=== PATIENT | female | born 1990 | race Caucasian/White ===

== ENCOUNTER 2025-04-27 11:13 | Emergency (ER) | payer OTHER, SELFPAY ==
--- OUTSIDE RECORDS SUMMARY | 2024-05-20 04:30 | XMS_ITS ---
Author Organization [facility] in [place] Address [address] [place] [address] Care Team Providers Care Mannequin Decorator Name Role Phone Dada Welch Primary Care Provider [phone] REASON FOR VISIT -1 Month Follow Up- Encounters Encounter Location Date Provider Diagnosis [facility] [address] [place] [address] 05/20/2024 Dada Welch Plan Of Treatment Next Appt Details Provider Name:Radiology Prov ider, 05/12/2025 02:30:00 PM, [address] [place] [address], [phone], Progress Notes * Anitha HOOD KDOB:[birth year] (35 yo F)Acc No.[id number]:05/20/2024 UNLOCKED PROGRESS NOTE Established Patient: Jennifer ROBLES Anitha Cinthya :?Dada Welch DODOB:1990???Age:34 Y ???Sex:FemaleDate:05/20/2024Phone:[phone]:2 [place], [place]-[address] Subjective: * Chief Complaints: * 1 . -1 Month Follow Up-. * Medical History: Objective: * Vitals: Assessment: Plan: * Treatment: * * Electronic signature of Dada Welch DO, [id number] on 04/27/2025 at 11:56 AM ESTSign off status: PendingVisit Status:?R/S (Rescheduled) * Provider: Samuel Welch DO Date: 0 05/20/2024 Generated for Printing/Faxing/eTransmitting on:?04/27/2025 11:56 AM EST
--- OUTSIDE RECORDS SUMMARY | 2024-06-03 04:30 | XMS_ITS ---
Author Organization [facility] in [place] Address [address] [place] [address] Care Team Providers Care Child And Youth Program Assistant Name Role Phone Dada Welch Primary Care Provider REASON FOR VISIT -1 Month Follow Up- Encounters Encounter Location Date Provider Diagnosis [facility] [address] [place] [address] 06/03/2024 Dada Welch Plan Of Treatment Next Appt Details Provider Name:Radiology Prov ider, 05/12/2025 02:30:00 PM, [address] [place] [address], [phone], Progress Notes * Anitha HOOD KDOB:[birth year] (35 yo F)Acc No.[id number]:06/03/2024 UNLOCKED PROGRESS NOTE Established Patient: Jennifer ROBLES Anitha Cinthya :?Dada Welch DODOB:1990???Age:34 Y ???Sex:FemaleDate:06/03/2024Phone:[phone]:2 [place], [place]-[address] Subjective: * Chief Complaints: * 1 . -1 Month Follow Up-. * Medical History: Objective: * Vitals: Assessment: Plan: * Treatment: * * Electronic signature of Dada Welch DO, [id number] on 04/27/2025 at 11:56 AM ESTSign off status: PendingVisit Status:?R/S (Rescheduled) * Provider: Samuel Welch DO Date: 0 06/03/2024 Generated for Printing/Faxing/eTransmitting on:?04/27/2025 11:56 AM EST
--- OUTSIDE RECORDS SUMMARY | 2024-09-23 04:30 | XMS_ITS ---
Author Organization [facility] in [place] Address [address] [place] [address] Care Team Providers Care Accounting System Expert Name Role Phone Dada Welch Primary Care Provider [phone] REASON FOR VISIT -6 Week Follow Up- Encounters Encounter Location Date Provider Diagnosis [facility] [address] [place] [address] 09/23/2024 Dada Welch Plan Of Treatment Next Appt Details Provider Name:Radiology Prov ider, 05/12/2025 02:30:00 PM, [address] [place] [address], [phone], Progress Notes * Anitha HOOD KDOB:[birth year] (35 yo F)Acc No.[id number]:09/23/2024 UNLOCKED PROGRESS NOTE Established Patient: Jennifer ROBLES Anitha Cinthya :?Dada Welch DODOB:1990???Age:34 Y ???Sex:FemaleDate:09/23/2024Phone:[phone]:[address] [place], [place]-[address] Subjective: * Chief Complaints: * 1 . -6 Week Follow Up-. * Medical History: Objective: * Vitals: Assessment: Plan: * Treatment: * * Electronic signature of Dada Welch DO, [id number] on 04/27/2025 at 11:56 AM ESTSign off status: PendingVisit Status:?R/S (Rescheduled) * Provider: Samuel Welch DO Date: 0 09/23/2024 Generated for Printing/Faxing/eTransmitting on:?04/27/2025 11:56 AM EST
--- OUTSIDE RECORDS SUMMARY | 2024-11-18 04:00 | XMS_ITS ---
Author Organization [facility] in [place] Address [address] [place] [address] Care Team Providers Care Records Tech Name Role Phone Dada Welch Primary Care Provider [phone] REASON FOR VISIT -1 Month Follow Up- Encounters Encounter Location Date Provider Diagnosis [facility] [address] [place] [address] 11/18/2024 Dada Welch Plan Of Treatment Next Appt Details Provider Name:Radiology Prov ider, 05/12/2025 02:30:00 PM, [address] [place] [address], [phone], Progress Notes * Anitha HOOD KDOB:[birth year] (35 yo F)Acc No.[id number]:11/18/2024 UNLOCKED PROGRESS NOTE Established Patient: Jennifer ROBLES Anitha Cinthya :?Dada Welch DODOB:1990???Age:34 Y ???Sex:FemaleDate:11/18/2024Phone:[phone]:[address] [place], [place]-[address] Subjective: * Chief Complaints: * 1 . -1 Month Follow Up-. * Medical History: Objective: * Vitals: Assessment: Plan: * Treatment: * * Electronic signature of Dada Welch DO, [id number] on 04/27/2025 at 11:56 AM ESTSign off status: PendingVisit Status:?CANC (Cancelled) * Provider: Samuel Welch DO Date: 0 11/18/2024 Generated for Printing/Faxing/eTransmitting on:?04/27/2025 11:56 AM EST
--- OUTSIDE RECORDS SUMMARY | 2025-04-26 05:30 | XMS_ITS ---
Author Organization [facility] in [place] Address [address] [place] [address] Care Team Providers Care Bowl Sander Name Role Phone Dada Welch Primary Care Provider Allergies No Known Allergies Reason For Referral Reason L LE EMG Diagnosis 1 Paresthesia of skin (R20.2) Referral Organization [facility] Referring Provider First Name Dada Referring Provider Last Name Yuri Referring Provider Speciality Family Med icine Referred Provider Janice Keane Referred Provider Specialty Neurology General Notes Dada Welch 11:07:02 AM >please call pt for appt - needs L LE EMG Referral Priority Routine REASON FOR VISIT leg pain, check up Medications Medication SIG (Take, Route, Frequency, Duration) Notes Start Date End Date Status Sertraline HCl 50 MG 1 tablet Orally Once a day; Duration: 30 days 04/26/2025tiveVilazodone HCl 20 MG1 tablet with food Orally Once a day; Duration: 30 days10/07/2024Not-TakingbusPIRone HCl 5 MG1 tablet Orally Twice a day08/12/2024Not-TakingGabapentin 100 MG1 capsule Orally bid; Duration: 30 days 5Active Social History Tobacco Use: Social History Observation Description Date Details (start date - stop date) Never Smoker NA - NA Tobacco Control (Standard) Question Answer Notes Tobacco use: Nonsmoker Problems Problem Type SNOMED Code ICD Code Onset Dates Problem Status W/U Status Risk Notes Problem Mild recurrent major depression (50179355) Major depressive disorder, recurrent, mild (F33.0) ActiveconfirmedProblemParesthesia (finding) (39758718)Paresthesia of skin (R20.2)Activeconfirmed Vital Signs Weight 174.2 lbs 04/26/2025 Height 67 in 04/26/2025 Blood pressure systolic 140 mm Hg 04/26/20 25 Blood pressure diastolic 90 mm Hg 025 Heart Rate 95 /min 04/26/2025 Respiratory Rate 16 /min 04/26/2025 BMI 27.28 kg/m2 04/26/2025 Oximetry 98 % 04/26/2025 Encounters Encounter Location Date Provider Diagnosis [facility] [address] [place] [address] 04/26/2025 Dada Welch Generalized anxiety disorder F41.1 ; Major depressive disorder, recurrent, mild F33.0 ; Pain in left hip M25.552 ; Paresthesia of skin R20.2 ; Overweight E66.3 ; Body mass index [BMI] 27.0-27.9, adult Z68.27 and Encounter for general adult medical examination with abnormal findings Z00.01 Assessments Encounter Date Diagnosis (ICD Code) Assessment Notes Treatment Notes Treatment Clinical Notes Section Notes 04/26/2025 Generalized anxiety disorder (IC D-10 - F41.1) rec counseling pt wants to restart the zoloft she was on in the past instead of the buspar/viibryd rtc 3 months 04/26/2025Major depressive disorder, recurrent, mild (ICD-10 - F33.0) rec counseling pt wants to restart the zoloft she was on in the past instead of the buspar/viibryd rtc 3 months 04/26/2025Pain in left hip (ICD-10 - M25.552) oarrs ok tx based on MRI results d/w pt that if MRI negative then I rec PT 04/26/2025Paresthesia of skin (ICD-10 - R20.2)EMG - tx based on results 04/26/2025Overweight (ICD-10 - E66.3)diet//17/2025ody mass index [BMI] 27.0-27.9, adult (ICD-10 - Z68.27)04/26/2025Encounter for general adult medical examination with abnormal findings (ICD-10 - Z00.01) rec eye and dental exams yearly diet/exercise rtc 1 year rec pap q5 years rec flu shot yearly rec dtap q10 years labs yearly Plan Of Treatment Medication Medication Name Sig Start Date Stop Date Notes Sertraline HCl 50 MG 1 tablet Orally Once a day; Durat ion: 30 days 04/26/2025 Gabapentin 100 MG1 capsule Orally bid; Duration: 30 days04/26/2025Treatment Notes Assessment Notes Generalized anxiety disorder rec counseling pt wants to restart the zoloft she was on in the past instead of the buspar/viibryd rtc 3 months Major depressive disorder, recurrent, mi ld rec counseling pt wants to restart the zoloft she was on in the past instead of the buspar/viibryd rtc 3 months Pain in left hip oarrs ok tx based on MRI results d/w pt that if MRI negative then I rec PT Paresthesia of skin EMG - tx based on re sults Overweight diet/exercise Encounter for general adult medical examination with abnormal findings rec eye and dental exams yearly diet/exercise rtc 1 year rec pap q5 years rec flu shot yearly rec dtap q10 years labs yearly Pending Test Test Name Order Date MRI Hip LT w/o contrast 04/26/2025 Referrals Referral Date Details 04/26/2025 04/26/2025, Janice TRIPLETT Next Appt Details Provider Name:Radiology Prov idetrue, 05/12/2025 02:30:00 PM, [address] [place] [address], [phone], Progress Notes * Anitha DANIELS KDOB:[birth year] (35 yo F)Acc No.[id number]:04/26/2025 Established Patient: Jennifer ROBLES Anitha Mendes :?Dada Welch, DODOB:1990???Age:35 Y ???Sex:FemaleDate:04/26/2025Phone:[phone]:[address] [place], [place]-[address]Check In:10:30 AM ESTCheck Out:11:14 AM EST Subjective: * Chief Complaints: * L eg painCheck up * HPI: ???General:?patient presents today for leg pain. she states she is hoping to get something prescribed.-mv pt off mood meds due to being off insurance was on buspar and viibryd but wants to go back to zoloft she was on in the past was helping SARTHAK and MDD s/s mostly anxiety with driving menses regular no geoscientist 04/2024 MRI L spine +small disc bulge at L5/S1 04/2024 MRI R femur - normal 04/2024 MRI L femur - normal 03/2024 MRI brain +neurofibromas, no major change no major LBP per pt L leg pain - from hip to foot? more numbness per pt constant pain per pt no f/c/URI s/s no cough bending makes pain worse no D/C/blood no dysuria/hematuria no rashes no vision/hearing problems no CP/SOB/dizzy/palp poor balance per pt limp and occ fall at random per pt 03/2024 A1c 4.6 labs reviewed - 01/2024 - TSH/CBC/CMP normal, TC 194, TG 72, HDL 64, LDL 116. * ROS: ???General/Constitutional:?Significant change in weight?denies.?Exercise Intolerance?denies.?Night sweats?denies.?Fever?denies.?Eyes:?Dry eyes?Denies.?Vision changes?denies.?ENMT:?Sore Throat?denies.?Nose Bleeds?denies.?Difficulty hearing?denies.?Ear pain?denies.?Nose/sinus problems?denies.?Snoring?denies.?Bleeding gums?denies.?Dry mouth?denies.?Mouth ulcers denies.?Oral abnormalities?denies.?Teeth problems?denies.?Cardiovascular:?Shortness of Breath w/Walking?denies.?Shortness of Breath w/lying flat?denies.?Arm pain on exertion?denies.?Chest pain?denies. Heart murmur?denies.?Palpitations?denies.?Respiratory:?Coughing up blood?denies.?Cough?denies.?Shortness of breath?denies.?Wheezing?denies.?Gastrointestinal:?Change in appetite?denies.?Vomiting blood?denies.?Abdominal pain?denies.?Constipation?denies.?Diarrhea?denies.?Vomiting?denies.?Genitourinary:?Dysuria/Increased Frequency?denies.?Hematuria?den ies.?Incontinence?denies.?Difficulty urinating?denies.?Musculoskeletal:?Swelling in the extremities?denies.?Arthralgias/jointpain?Denies.?Back pain?denies.?Weakness of muscles?admits.?Muscle aches?admits.?Skin:?Jaundice?Denies.?Mole(s)?denies.?Rash?denies.?Neurologic:?Dizziness?denies.?Loss of consciousness?denies. Numbness?admits .?Weakness?admits.?Headache?denies.?Seizures?denies.?Psychiatric:?Alcohol abuse?denies.?Feeling safe in relationship&#16 0;denies.?Depression?admits.?Anxiety?admits.?Sleep Disturbances?admits.?Endocrine:?Fatigue?admits.?Hematologic/Lymphatic:?Swollen Glands?denies.?Bruising?denies.?Allergy/Immunology:?Runny nose?denies.?Sinus pressure?denies.?Frequent sneezing?denies.?Hives?denies.?Itching?denies.? * Active Problem List F33.2 Major depressive dis order, recurrent severe without psychotic features Modified On:01/29/2024 Status:jrsfgdiwmH23.82Chronic fatigue, unspecified Modified On:01/29/2024 Status:emvnyrgkaE50.09Other neurofibromatosis Modified On:01/29/2024 Status:frzaguejeC50.00Neurofibromatosis, unspecified Modified On:01/29/2024 Status:mrdqrfpdoD57.1Generalized anxiety disorder Modified On:04/11/2024 Status:nyxrwptseY20.816Spondylosis without myelopathy or radiculopathy, lumbar region Modified On:04/11/2024 Status:kkrbosmaeZ03.89Other abnormalities of gait and mobility Modified On:04/11/2024 Status:xfogpfhjnK56.840Attention and concentration deficit Modified On:07/15/2024 Status:hexkxvxidN33.3Overweight Modified On:07/25/2024U Status:qgtdjocwmF03.0Major depressive disorder, recurrent, mild Modified On:04/26/2025 Status:pwruxhnpqA17.2Paresthesia of skin Modified On:04/26/2025 Status:confirmed * Medical History: * Surgical History: C section colonoscopy - normal - repeat in 5 years - 02/2024 * Hospitalization/Major Diagno stic Procedure: N o Hospitalization History. * Family History: F ather: alive, neurofibromatosis. M other: alive, colon cancer. M aternal aunt: dm.? * Social History: ???Tobacco Use:?Tobacco Control (Standard)?Tobacco use:?Nonsmoker * Medications: N ot-Taking/PRNbusPIRone HCl 5 MG Tablet 1 tablet Orally Twice a day Vilazodone HCl 20 MG Tablet 1 tablet with food Orally Once a day Medication List reviewed and reconciled with the patientNot-Taking/PRN busPIRone HCl 5 MG Tablet 1 tablet Orally Twice a day Not-Taking/PRN Vilazodone HCl 20 MG Tablet 1 tablet with food Orally Once a day Medication List reviewed and reconciled with the patient * Allergies: N .K.D.A.no[Allergies Verified] Objective: * Vitals: W t:174.2lbs, Ht: 67 in, BP:140/90mm Hg, HR:95/min, RR:16/min, BMI:27.28Index, Oxygen sat %:98%, Ht-cm: 170.18 cm, Wt-k.02 kg. * Examination: ???General Examination: ?GENERAL APPEARANCE:?healthy Appearing , well nourished , well developed Level of distress: NAD,?+limp/gait unsteady,?overweight.?ENMT:?EACs clear, TMs clear, no hearing loss, no lesions on external ears, nares patent, nasal passages clear, no sinus tenderness, no nasal discharge, no mouth or lip ulcers, no bleeding gums, moist mucous membranes, no erythema, no exudates.?HEAD:?normocephalic, atraumatic.?EYES:?non-injected, no discharge, no pallor, PERRLA , EOMI,?sclera non- icteric, peripheral vision grossly intact, acuity grossly intact.?LUNGS:?no dyspnea, breath sounds normal , good air movement, CTA except as noted, no wheezing, no rales/crackles, no rhonchi.?CARDIO:?not displaced, RRR, S1, S2 normal , no murmurs, rubs, gallops , no carotid bruits, normal throughout.?ABDOMEN:?normal bowel sounds , soft, non tender, not distended, no guarding, no rebound tenderness, no masses, no CVA tenderness, liver non tender, no hepatomegaly.?BACK:?normal curvature.?MUSCULOSKELETAL:?normal motor strength, normal tone, normal movement of all extremities, no bony abnormalities, no contractures, no malalignment, no tenderness.?SKIN:?no rash, +neurofibromas in multiple places on her skin, no ulcer, no abnormal nevi, no induration, no nodules, good turgor, no jaundice.?EXTREMITIES:? No edema.?NEUROLOGIC:?cranial nerves grossly intact, sensation grossly intact, no tremor, - SLR b/l LE.?PSYCH:?judgement and insight good, active and alert, normal mood, normal affect.?NECK/THYROID:?Neck supple, trachea midline, no masses, FROM, no cervical LAD, no enlargement, non-tender, no nodules.? Assessment: * Assessment: 1.?Generalized anxiety disorder - F41.1???2.?Major depressive disorder, rec urrent, mild - F33.0???3.?Pain in left hip - M25.552???4.?Paresthesia of skin - R20.2???5.?Overweight - E66.3???6.?Bodymass index [BMI] 27.0-27.9, adult - Z68.27???7.?Encounter for general adult medical examination with abnormal findings - Z00.01??? Plan: * Treatment: Notes: rec counseling pt wants to restart the zoloft she was on in the past instead of the buspar/viibryd rtc 3 months ??2.?Major depressive disorder, recurrent, mild? Start Sertraline HCl Tablet, 50 MG, 1 tablet, Orally, Once a day, 30 days, 30 Tablet, Refills 5. ? Notes: rec counseling pt wants to restart the zoloft she was on in the past instead of the buspar/viibryd rtc 3 months??3.?Pain in left hip? Start Gabapentin Capsule, 100 MG, 1 capsule, Orally, bid, 30 days, 60 Capsule, Refills 1.?Imaging: MRI Hip LT w/o contrast* Dada Welch 04/26/2025 11:07:56 AM EST >Please call patient to schedule Notes: oarrs ok tx based on MRI results d/w pt that if MRI negative then I rec PT ??4.?Paresthesia of skin? Notes: EMG - tx based on results ? Referral To:Janice Keane??Neurology ?Reason:L LE EMG 5.?Overweight? Notes: diet/exercise ??6.?Encounter for general adult medical examination with abnormal findings? Notes: rec eye and dental exams yearly diet/exercise rtc 1 year rec pap q5 years rec flu shot yearly rec dtap q10 years labs yearly ?? * Procedure Codes: 3 080F DIAST BP > OR = 90 MM [id number] SYST BP > OR = 140 MM HG * * ign off status: CompletedVisit Status:?CHK (Check Out) true * Provider: Samuel Welch DO Date: 06/27/2024 Generated for Printing/Faxing/eTransmitting on:?04/27/2025 11:55 AM EST History and Physical Notes * Examination CategorySub-CategoryDetailNotesCategory NotesGeneral ExaminationGENERAL APPEARANCE:healthy Appearing , well nourished , well developed Level of distress: NAD, +limp/gait unsteady, overweightEYES:non-injected, no discharge, no pallor, PERRLA , EOMI, sclera non-icteric, peripheral vision grosslyintact, acuity grossly intactCARDIO:not displaced, RRR, S1, S2 normal , no murmurs, rubs, gallops , no carotid bruits, normal throughoutLUNGS:no dyspnea, breath sounds normal , good air movement, CTA except as noted, no wheezing, no rales/crackles, no rhonchiABDOMEN:normal bowel sounds , soft, non tender, not distended, no guarding, no rebound tenderness, no masses, no CVA tenderness, liver non tender, no hepatomegalyNEUROLOGIC:cranial nerves grossly intact, sensation grossly intact, no tremor, - SLR b/l LESKIN:no rash, +neurofibromas in multiple places on her skin, no ulcer, no abnormal nevi, no induration, no nodules, good turgor, no jaundiceEXTREMITIES:No edemaBACK:normal curvature MUSCULOSKELETAL:normal motor strength, normal tone, normal movement of all extremities, no bony abnormalities, no contractures, no malalignment, no tendernessPSYCH:judgement and insight good, active and alert, normal mood, normal affectENMT:EACs clear, TMs clear, no hearing loss, no lesions on external ears, nares patent, nasal passages clear, no sinus tenderness, no nasal discharge, no mouth or lip ulcers, no bleeding gums, moist mucous membranes, no erythema, no exudatesHEAD:normocephalic, atraumaticNECK/THYROID:Neck supple, trachea midline, no masses, FROM, no cervical LAD, no enlargement, non-tender, no nodules Consultation Request Notes Referral Date Referring Provider Referred Provider Not conchis 04/26/2025 Dada Welch Nicole L LE EMG
[2025-04-27 11:19] VITALS: BP 172/99; PULSE 90; TEMP 37.1; O2SAT 98; BMI 27.4
--- OUTSIDE RECORDS SUMMARY | 2025-04-27 11:55 | XMS_ITS | Clinical Summary ---
Author Organization [facility] Address [id number] [address] [place] [address] Care Team Providers Care Book Repairer Name Role Phone Dada Welch Primary Care Provider Allergies No known active allergies Medications MedicationSigDispense QuantityRefillsLast FilledStart DateEnd DateStatus escitalopram (LEXAPRO) 10 mg tablet Take 1 tablet (10 mg total) by mouth in the morning.4Active Active Problems No known active problems Family History Medical HistoryRelationNameCommentsNeurofibromatosisFatherBreast cancerMaternal AuntColon cancerMotherstage IVRelationNameStatusCommentsFatherMaternal Aunt Mother Social History Tobacco UseTypesPacks/DayYears UsedDateSmoking Tobacco: NeverSmokeless Tobacco: Never Tobacco Cessation:Counseling Given: Not Answered Alcohol UseStandard Drinks/WeekCommentsNever0 (1 standard drink = 0.6 oz pure alcohol)ChildcareAnswerDate IxjjluukBzxycxxcpBcvtsbl13/12/2019EmploymentAnswer Date RhgdrzhzFbobifsnmwMqsyweu77/12/2019Hunger ScreeningAnswerDate Recorded Within the past 12 months we worried whether our food would run out before we got money to buy more.Never True05/05/2022Within the past 12 months the food we bought just didn't last and we didn't have money to get more.Never True 05/05/2022CommentsNoSex and Gender InformationValueDate RecordedSex Assigned at BirthNot on fileLegal UkoJocirm99/06/2015 11:40 AM EDTGender IdentityNot on fileSexual OrientationNot on file Last Filed Vital Signs Vital SignReadingTime TakenCommentsBlood Oylfbxze280/9103/04/2024 9:40 AM EDT Nnpep237103/04/2024 9:40 AM HJYIcuaxzrzbxk79.1 ??C (98.7 ??F)03/04/2024 7:32 AM EDTRespiratory Rzfg8590 9:40 AM EDTOxygen Gewqbtiduc411%03/04/2024 9:40 AM EDTInhaled Oxygen Concentration--Yfawvc59.2 kg (135 lb)03/04/2024 7:32 AM EDT Hwstck249.2 cm (5' 7 )03/04/2024 7:32 AM EDTBody Mass Index21.141 7:32 AM EDT Plan of Treatment Health MaintenanceDue DateLast DoneCommentsDepression Dvcddohlg86/01/2001Pap Smear2010DTaP,Tdap and Td Vaccines (6 - Td or Tdap), 09/24/1994, 12/23/1993, Additional history existsInfluenza Cukiyii0501/09/2025 Adult BMI Rkehehjqa98Tobacco Iiqyecqjw69 Kyrdkucshxy18, 03/04/2024 Medical Devices Not on file Procedures Procedure NamePriorityDate/TimeAssociated DiagnosisCommentsPROVATION COLONOSCOPY Nxdnmpa2303/04/2024 8:19 AM EDT from Last 3 Months or Most Recently Relevant to Health Maintenance Results * Colonoscopy Report (03/04/2024 8:19 AM EDT)Specimen (Source)Anatomical Location / LateralityCollection Method / VolumeCollection TimeReceived Time Narrative SYSTEMGENERATED, DOCUMENTATION - 03/04/2024 8:19 AM EDT This order has been auto-finalized for image and report archival in PACs. *For full report details, please reach out to your physician. ??This image is visible to you in MyChart.* Authorizing ProviderResult TypeResult StatusMennatavelino Duke MDIMG OR IMG ORDERABLESFinal Result from Last 3 Months or Most Recently Relevant to Health Maintenance Insurance Care Teams Team MemberRelationshipSpecialtyStart DateEnd Date Dada Welch DO [address] [place] [address] PCP - GeneralFamily Inxwzlpe42/1/24
--- OUTSIDE RECORDS SUMMARY | 2025-04-27 11:55 | XMS_ITS | Patient Health Record ---
Author Organization [facility] in [place] Address [address] [place] [address] Care Team Providers Care Research Quality Assurance Analyst Name Role Phone Dada Welch Primary Care Provider Provider, Radiology Unavailable [phone] Allergies No Known Allergies Reason For Referral Reason ADHD eval concentr ation/focus deficit Diagnosis 1 Attention and concen tration deficit (R41.840) [facility] Referring Provider First Name Dada Referring Provider Last Name [facility] Provider Specialty Psychologist General Notes Dada Welch 09:56:48 AM >please call pt for appt Referral Priority Routine Reason L LE EMG Diagnosis 1 Paresthesia of skin (R20.2) Referral Organization [facility] georgina Referring Provider First Name Dada Referring Provider Last Name [facility] Referring Provider [facility] vikki Referred Provider Janice Keane Referred Provider Specialty Neurology General Notes Dada Welch 11:07:02 AM >please call pt for appt - needs L LE EMG Referral Priority Routine Medications Medication SIG (Take, Route, Frequency, Duration) Notes Start Date End Date Status Sertraline HCl 50 MG 1 tablet Orally Once a day; Duration: 30 days 5ActiveVilazodone HCl 20 MG1 tablet with food Orally [...] Problem Status W/U Status Risk Notes Problem Overweight (466150730) Overweight (E66.3) ActiveconfirmedProblemMild recurrent major depression (62258724)Major depressive disorder, recurrent, mild (F33.0)ActiveconfirmedProblemSevere recurrent major depression without psychotic features (30531657)Major depressive disorder, recurrent severe without psychotic features (F33.2)ActiveconfirmedProblem Generalized anxiety disorder (89698884)Generalized anxiety disorder (F41.1) ActiveconfirmedProblemLumbosacral spondylosis without myelopathy (10122320) Spondylosis without myelopathy or radiculopathy, lumbar region (M47.816)Active confirmedProblemNeurofibromatosis (54027910)Neurofibromatosis, unspecified (Q85.00)ActiveconfirmedProblemNeurofibromatosis (45632213)Other neurofibromatosis (Q85.09)ActiveconfirmedProblemParesthesia (finding) (53048663) Paresthesia of skin (R20.2)ActiveconfirmedProblemAbnormal gait (84572774)Other abnormalities of gait and mobility (R26.89)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, predominantly inattentive type (disorder) (70742007)Attention and concentration deficit (R41.840)ActiveconfirmedProblem Chronic fatigue syndrome (disorder) (65957816)Chronic fatigue, unspecified (R53.82)Activeconfirmed Vital Signs Heart Rate 95 /min 04/26/2025 Respiratory Rate16 /min04/26/2025lood pressure sgicwokhl60 mm Hg04/26/2025 Ldixyopd47 %04/26/20256087Zeqbru19 in04/26/2025lood pressure jahysnac451 mm Hg 04/26/20256056Uzbhzd386.2 lbs106/27/2024BMI27.28 kg/m204/26/2025 Encounters Encounter Location Date Provider Diagnosis [facility] [address] [place] [address] 07/15/2024 [facility] [address] [address]/[facility] [place] [address] [place] [address]/ Dada WelchMajor depressive disorder, recurrent severe without psychotic features F33.2Radiology [place] [address] [place] [address]//4Radiology ProviderSpondylosis without myelopathy or radiculopathy, lumbar region M47.816Radiology [facility] [place] [address]//4Radiology ProviderPain in left thigh M79.652Radiology [facility] [place] [address]//4Radiology ProviderPain in right thigh M79.651[facility] [place] [address] [place] [address]/Danireese Welch Generalized anxiety disorder F41.1 ; Major depressive disorder, recurrent, mild F33.0 ; Pain in left hip M25.552 ; Paresthesia of skin R20.2 ; Overweight E66.3 ; Body mass index [BMI] 27.0-27.9, adult Z68.27 and Encounter for general adult medical examination with abnormal findings Z00.01Family Practice [address] [address]/11/2024Danireese HerringMajor depressive disorder, recurrent severe without psychotic features F33.2 ; Generalized anxiety disorder F41.1 ; Body mass index [BMI] 24.0-24.9, adult Z68.24 and Localized swelling, mass and lump, unspecified R22.9Family Practice [address] [address]/11/2024Danireese HerringMajor depressive disorder, recurrent severe without psychotic features F33.2 ; Generalized anxiety disorder F41.1 ; Attention and concentration deficit R41.840 ; Overweight E66.3 and Body mass index [BMI] 26.0-26.9, adult Z68.26Family [facility] [place] [address] [place] [address]/08/2024Daniel Welch Major depressive disorder, recurrent severe without psychotic features F33.2 ; Generalized anxiety disorder F41.1 ; Overweight E66.3 and Body mass index [BMI] 26.0-26.9, adult Z68.26Family [facility] [place] [address] [place] [address]/Daniel HerringMajor depressive disorder, recurrent severe without psychotic features F33.2 ; Generalized anxiety disorder F41.1 ; Overweight E66.3 and Body mass index [BMI] 27.0-27.9, adult Z68.27 Assessments Encounter Date Diagnosis (ICD Code) Assessment Notes Treatment Notes Treatment Clinical Notes Section Notes 04/27/2024 Spondylosis without myelopathy or radiculopathy, lumbar region (ICD- 10 - M47.816) 4Pain in left thigh (ICD-10 - M79.652)4Pain in right thigh (ICD-10 - M79.651)06/17/2024Major depressive disorder, recurrent severe without psychotic features (ICD-10 - F33.2) rec counseling rtc 1 month genesight done today 06/17/2024Generalized anxiety disorder (ICD-10 - F41.1) see above ?xanax or atarax prn ?buspar 07/15/2024Major depressive disorder, recurrent severe without psychotic features (ICD-10 - F33.2) rec counseling rtc 1 month increase cymbalta 07/15/2024Generalized anxiety disorder (ICD-10 - F41.1)increase cymbalta 08/12/2024Major depressive disorder, recurrent severe without psychotic features (ICD-10 - F33.2) continue cymbalta 60mg daily rec counseling rtc 6 months 08/12/2024Generalized anxiety disorder (ICD-10 - F41.1) rtc 3 months add buspar rec counseling 10/07/2024Major depressive disorder, recurrent severe without psychotic features (ICD-10 - F33.2) change to viibryd ?add abilify rtc 1 month rec counseling genesight reviewed 10/07/2024Generalized anxiety disorder (ICD-10 - F41.1) stable d/w pt that we can increase buspar if needed rec counseling 04/26/2025Generalized anxiety disorder (ICD-10 - F41.1) rec counseling pt wants to restart the zoloft she was on in the past instead of the buspar/viibryd rtc 3 months 05/25/2024Major depressive disorder, recurrent severe without psychotic features (ICD-10 - F33.2)04/26/2025Major depressive disorder, recurrent, mild (ICD-10 - F33.0) rec counseling pt wants to restart the zoloft she was on in the past instead of the buspar/viibryd rtc 3 months 10/07/2024Overweight (ICD-10 - E66.3)diet/vzogiyrv55/04/2025Overweight (ICD-10 - E66.3)diet/stixgbqf19/07/2025ttention and concentration deficit (ICD-10 - R41.840)refer for eval06/17/2024ody mass index [BMI] 24.0-24.9, adult (ICD-10 - Z68.24)06/17/2024Localized swelling, mass and lump, unspecified (ICD-10 - R22.9) setup CT ?refer to surgeon for removal ?neurofibroma - pt doesnt think so 07/15/2024Overweight (ICD-10 - E66.3)diet/eylcolsv30/04/2025ody mass index [BMI] 26.0-26.9, adult (ICD-10 - Z68.26)10/07/2024ody mass index [BMI] 27.0- 27.9, adult (ICD-10 - Z68.27)04/26/2025Pain in left hip (ICD-10 - M25.552) oarrs ok tx based on MRI results d/w pt that if MRI negative then I rec PT 04/26/2025Paresthesia of skin (ICD-10 - R20.2)EMG - tx based on results 07/15/2024ody mass index [BMI] 26.0-26.9, adult (ICD-10 - Z68.26)04/26/2025 Overweight (ICD-10 - E66.3)diet/iisdbsmy68/17/2025ody mass index [BMI] 27.0- 27.9, adult (ICD-10 - Z68.27)04/26/2025Encounter for general adult medical examination with abnormal findings (ICD-10 - Z00.01) rec eye and dental exams yearly diet/exercise rtc 1 year rec pap q5 years rec flu shot yearly rec dtap q10 years labs yearly Plan Of Treatment Pending Test Test Name Order Date CT Brain w/o contrast 06/17/2024 MRI Brain w/wo contrast * 03/11/2024 MRI Hip LT w/o contrast 04/26/2025 Next Appt Details Provider Name:Radiology Prov ider, 05/12/2025 02:30:00 PM, [address] [place] [address], [phone], Insurance Providers Payer Name Payer Address Payer Phone Subscriber Number Group Number Insured Name Patient Relationship to Insured Coverage Start Date Coverage End Date [employer] [place] [employer] [address] [place] [phone] [id number] Joselito Danielself - patient is the [id number] 2024 Medical (General) History Medical History History ICD Code MDD neurofibromatosisGADSurgical History Surgery Date(Month/Year) colonoscopy - normal - repeat in 5 years - 02/2024 C section
--- OUTSIDE RECORDS SUMMARY | 2025-04-27 11:55 | XMS_ITS | Patient Health Record ---
Author Organization [facility] Address [address] [place], [place] [id number] Support Name Relationship Address Phone Chad Daniels Emergency Contact [address], [place] [id number] Anitha Daniels Guarantor Unknown Allergies No Known Allergies Reason For Referral No Information Social History Sex Assigned At : Social History Observation Description Sex Assigned At Female Social History Additional DetailsCategorySocial InfoOptionsDetailsMigrated Social History Migrated Social History Barriers to Learning, AttributeTitle: None, ProblemStatus: Active, , Caffeine Use, COMMENTS: drinks 4 cans of pop per day, ProblemStatus: Active, , Cultural or sikhism beliefs that would affect your care here?, AttributeTitle: No, ProblemStatus:Active, , Culture/Language Barrier, AttributeTitle: Language barrier, COMMENTS: no, ProblemStatus: Active, , Current tobacco use, AttributeTitle: Never smoker, ProblemStatus: Active, , Current Work/Study Status, AttributeTitle: Part-time, ProblemStatus: Active, , Education Level, AttributeTitle: Grade 7-12, ProblemStatus: Active, , How often do you need to have someone help you read instructions?, AttributeTitle: Never, ProblemStatus: Active, , Learning preference , AttributeTitle: Doing or Practicing, ProblemStatus: Active, , Living Situation, AttributeTitle: Lives with relatives, COMMENTS: Daughter, ProblemStatus: Active, , Most Recent Primary Occupation, AttributeTitle: Sales, ProblemStatus: Active, , No Drug Use, ProblemStatus: Active, , Non Drinker/No Alcohol Use, ProblemStatus: Active, , Nutrition, AttributeTitle: Well-balanced diet, ProblemStatus: Inactive, , Patient feels safe in relationships, ProblemStatus: Active, , Patient/Guardian are aware that this is a billable charge, ProblemStatus: Active, , Patient/Guardian provided verbal consent for virtual treatment, ProblemStatus: Active Problems Problem Type SNOMED Code ICD Code Onset Dates Problem Status W/U Status Risk Notes Problem Depression screening (265356548) Screenin g for depression (Z13.31) ActiveconfirmedDescription:Depression screeningProblemMedroxyprogesterone acetate depot injection given (322455122)Encounter for Depo-Provera contraception (Z30.42)ActiveconfirmedComment:If spotting worsens, having cramping or clots, return sooner, otherwise f/u in 3 mos for next shot.,Problem Exposure to sexually transmissible disorder (337251322)Exposure to STD (Z20.2) Activeconfirmed Comment:asymptomatic No hx of STD's milky discharge present on exam send for testing, treat as needed. DEMARCO [place], present for exam PVU Call if symptoms present, ProblemBacterial vaginosis (295032086)Bacterial vaginosis (N76.0)Activeconfirmed Comment:Take Flagyl as prescribed. No alcohol while on med. F/u with any problems., ProblemMixed anxiety and depressive disorder (469317352)Anxiety and depression (F41.9)Activeconfirmed Comment:-sxs slightly improved after increasing Zoloft and Hydroxyzine but not much imprvement -increased Zoloft to 200mg & Hydroxyzine 25mg PO QD PRN, counselled on not to DC med at her own, PVU -cw meditation and regular exercises as able -denies w/o SI / H, f/u in 1 month -if no further improvement then may add another agent and or referral to Psych, PVU,Story:-Cymbaltaand Celexa did not help still anxious and depressed most of the times, ProblemContraception care education (238498995) control counseling (Z30.09) Activeconfirmed Comment:-Patient does not wish to get the pill, worried about bad things -No risk factors or contraindications for hormonal control -Low risk for blood clots -Would like to have the depo shot done -Instructed on the side effects, risks, and need to follow up every three months the next administration. PVU -Recommended using another method of contraception for the first week to avoid any unwanted pregnancies -Recommended she get a well woman exam done here or with locomotive engineer electric soon - test was negative today, ProblemScreening for malignant neoplasm of cervix (120138935)Encounter for Pap smear of cervix with HPV DNA cotesting (Z12.4)Activeconfirmed Comment:Return with worsening or heavier bleeding, cramping, or other issues. Will call with any abnormal results from PAP., ProblemMixed anxiety and depressive disorder (401817834)Anxiety and depression (F41.8)Activeconfirmed Comment:will re-start SSRI today discussed SE's and possible adverse effects + family hx, not much support in daily life. no fmaily hx of thyroid disorder PVU, agrees with plan, Plan Of Treatment No Information Insurance Providers Payer Name Payer Address Payer Phone Subscriber Number Group Number Insured Name Patient Relationship to Insured Coverage Start Date Coverage End Date [facility] [address] [place] [address] [id number] Oswaldo Daniels - patient is the [id number] [employer] [facility] [address] [place] [id number], MichelleSelf - patient is the [id number] [facility] after [employer] [place], [place] [id number], MichelleSelf - patient is the insured [address]DMedicaid [facility] after [employer]aresourceDentaunm [facility] centerPO [address] [place], [place] [id number], MichelleSelf - patient is the [id number] 07/10/1752 Medical (General) History Surgical History Surgery Date(Month/Year) None, ProblemStatus: Active, 2015-01-17
--- NOTE | 2025-04-27 12:13 | ED.EXTPRO1 ---
HPI - Extremity Problem General Chief complaint: Extremity Problem, Nontraumatic Stated complaint: LOWER EXTREMITY PAIN Time Seen by Provider: 04/27/25 11:56 Source: patient and family Mode of arrival: walk-in Limitations: no limitations History of Present Illness HPI Narrative: Patient have history of sciatica diagnosed almost in August of this year which is 8 months ago presented to the ER after she recently felt that the pain is getting worse, sometimes affecting her walking because she feels like she is out of balance although she does not have any room spinning sensation The patient mentioned that all her symptoms started in August of this year, no history of fall or trauma Patient was just started by her primary care on gabapentin with no improvement Related Data Home Medications ?Medication ?Instructions ?Recorded ?Confirmed gabapentin 100 mg capsule 100 mg PO QDAY 04/27/25 04/27/25 sertraline 50 mg tablet (Zoloft) 50 mg PO DAILY 04/27/25 04/27/25 Previous Rx's ?Medication ?Instructions ?Recorded diclofenac sodium 75 mg 75 mg PO BID PRN pain #20 tabs 04/27/25 tablet,delayed release orphenadrine citrate 100 mg 100 mg PO DAILY PRN muscle spasm 04/27/25 tablet,extended release #10 tabs Allergies Allergy/AdvReac Type Severity Reaction Status Date / Time No Known Drug Allergies Allergy Verified 04/27/25 11:24 Review of Systems ROS Status of ROS 10 or more systems reviewed and unremarkable except as noted in history and below PFSH PFSH Social History Little interest or pleasure in doing things: nearly every day Feeling down, depressed, or hopeless: nearly every day Exam Narrative Exam Narrative: Nurses notes and vital signs reviewed and patient is not hypoxic. General: Well-appearing and in no apparent distress. Skin: Warm, dry, no pallor noted. No rash. Head: Normocephalic, atraumatic. Neck: Supple, non-tender. Eye: Pupils are equal, round and EOMI. No scleral icterus. Ears, Nose, Mouth, and Throat: TM are clear, no nasal mucosal hypertrophy. Oral mucosa is moist, no posterior oropharynx erythema, uvula is mid-line Cardiovascular: Regular Rate and Rhythm without murmur, gallop or rub. Respiratory: No accessory muscle use or respiratory distress. Lungs are clear to auscultation, no wheezing, rales or rhonchi Chest Wall: no tenderness Back: No midline thoracic or lumbar vertebral tenderness. No CVA tenderness, there is only paraspinal muscle tenderness in the lumbar level and both side extending to the sacral no intervertebral line tenderness Musculoskeletal: normal ROM, no calf or popliteal tenderness, no lower extremity edema/swelling GI: Abdomen is soft, non-distended. Normal bowel sounds. No masses appreciated. No tenderness to palpation. No rebound, guarding, or rigidity noted. Neurological: A&O x4. No cranial nerve dysfunction observed. No truncal ataxia. Moves all extremities. Sensation intact. Psychiatric: Cooperative and interactive. Normal mood and affect. Constitutional Vital Signs, click to edit/add: Last Vital Signs Temp 98.7 F 04/27/25 11:19 Pulse 90 04/27/25 11:19 Resp 18 04/27/25 11:19 BP 172/99 H 04/27/25 11:19 Pulse Ox 98 04/27/25 11:19 O2 Del Method Room Air 04/27/25 11:19 Course Vital Signs Vital signs: Vital Signs Temperature 98.7 F 04/27/25 11:19 Pulse Rate 90 04/27/25 11:19 Respiratory Rate 18 04/27/25 11:19 Blood Pressure 172/99 H 04/27/25 11:19 Pulse Oximetry 98 04/27/25 11:19 Oxygen Delivery Method Room Air 04/27/25 11:19 Temperature 98.7 F 04/27/25 11:19 Pulse Rate 90 04/27/25 11:19 Respiratory Rate 18 04/27/25 11:19 Blood Pressure 172/99 H 04/27/25 11:19 Pulse Oximetry 98 04/27/25 11:19 Oxygen Delivery Method Room Air 04/27/25 11:19 MDM - Extremity (Nontraumatic) MDM Narrative Medical decision making narrative: The patient presented to us with no alarming symptoms no weakness no incontinence of urine or stool And her chronic pain and sciatica specially that she is not really taking any medication and the fact that she already had an MRI done in August that showed that she have mild disease The patient right now will be treated with Toradol and Norflex in the ER discharged home with Voltaren and Norflex with instruction to follow-up with her primary care I did explain to the patient that chronic pain needs more management than just a couple doses of medication in the ER she might need physical therapy and she need further management and monitoring for symptom improvement The patient to follow-up with the primary care within 2 to 3 days and to come back to the ER in case of any worsening of the current symptoms or any new symptoms or concerns Discharge Plan Discharge Chief Complaint: Extremity Problem, Nontraumatic Clinical Impression: Sciatica, Back pain Patient Disposition: Home, Self-Care Time of Disposition Decision: 12:18 Condition: Good Prescriptions / Home Meds: New orphenadrine citrate 100 mg tablet extended release 100 mg PO DAILY PRN (Reason: muscle spasm) Qty: 10 0RF diclofenac sodium 75 mg tablet,delayed release (DR/EC) 75 mg PO BID PRN (Reason: pain) Qty: 20 0RF No Action sertraline [Zoloft] 50 mg tablet 50 mg PO DAILY gabapentin 100 mg capsule 100 mg PO QDAY Print Language: Yi Instructions: Sciatica (ED) Additional Instructions: Please take all your medication with food not to empty stomach Referrals: PETRA MOBLEY DO [Primary Care Provider, Family Practice] - 1 week Discharge Date/Time: 04/27/25 13:57
[2025-04-27] MEDS: FAMOTIDINE 20 MG TABLET PO (12:20)
[2025-04-27] MEDS: PREDNISONE 20 MG TABLET 40 MG PO (12:20)
[2025-04-27] MEDS: KETOROLAC TROMETHAMINE 30 MG/ML VIAL IM (12:21)
== END 2025-04-27 13:57 | disposition home or self-care (01) ==
PROVIDERS: Emergency Provider Emergency Medicine; PCP Family Medicine
DX: M54.30 Sciatica, unspecified side (principal); M54.9 Dorsalgia, unspecified
CPT/HCPCS: 96372; 99284; J1885; J7512